=== PATIENT | female | born 1960 | race Asian ===

== ENCOUNTER 2016-07-17 22:58 | Emergency (ER) | payer OTHER ==
[~2016-07-17] VITALS: Ht 152.4 cm; Wt 61.2 kg
[~2016-07-17 22:58] MED LIST: CAT.1 PO; CEL20 PO; CYCL-10 PO; HYDR-1189 PO; HYDROCHLOROTHIAZIDE PO
[2016-07-18 00:10] VITALS: BP_SYST 141
--- NOTE | 2016-07-18 00:15 | NUR ---
Patient to ER bed 3 to gown for evaluation. Side rails up.
--- NOTE | 2016-07-18 00:30 | NUR ---
Pt in bed 3 with c/o blurryvision to right eye since [address] Iverson aware.
--- NOTE | 2016-07-18 00:45 | NUR ---
ER at bedside examining patient.
[2016-07-18 01:35] VITALS: BP_SYST 108
--- NOTE | 2016-07-18 01:35 | NUR ---
Patient given written and verbal discharge instructions and verbalizes understanding. ER MD discussed with patient the results and treatment provided. Patient in stable condition. ID arm band removed. No Rx given. Patient educated on pain management and to follow up with PMD. Pain Scale 0/10. Opportunity for questions provided and answered.
== END 2016-07-18 01:35 | disposition home or self-care (01) ==
LOC: SED 22:58
DX: H53.8 Other visual disturbances (principal)
CPT/HCPCS: 82962; 99282

== ENCOUNTER 2016-07-31 15:33 | Emergency (ER) | payer OTHER ==
[~2016-07-31] VITALS: Ht 152.4 cm; Wt 61.2 kg
[2016-07-31 15:35] VITALS: BP_SYST 129
[2016-07-31] MEDS ORDERED: DIPHENHYDRAMINE INJ 50 MG/ML VIAL IM ONE (16:00)
[2016-07-31] MEDS ORDERED: methylPREDNISolone SOD SUCC/PF 62.5 MG/ML VIAL IM ONE (16:00)
[2016-07-31] MEDS ORDERED: FAMOTIDINE 20 MG TABLET PO ONE (16:00)
[2016-07-31 16:31] VITALS: BP_SYST 129
== END 2016-07-31 16:31 | disposition home or self-care (01) ==
LOC: SED 15:33
DX: L50.9 Urticaria, unspecified (principal); I10 Essential (primary) hypertension; E11.9 Type 2 diabetes mellitus without complications; F32.9 Major depressive disorder, single episode, unspecified; I25.2 Old myocardial infarction; Z88.1 Allergy status to other antibiotic agents
CPT/HCPCS: 96372; 99284; J1200; J2930